=== PATIENT | male | born 1995 | race Caucasian/White ===

== ENCOUNTER → 2016-11-09 | Outpatient (CLI) | payer OTHER ==
[2016-11-09 11:55] VITALS: BP 137/85
--- NOTE | 2016-11-09 11:55 | Urgent Care T Sheet Gen (E) ---
Intake General Temperature (Fahrenheit): 97.7 Pulse: 78 Blood Pressure Systolic: 137 Blood Pressure Diastolic: 85 Respirations: 20 SPO2: 99 Description of Symptoms Patient presents with illness since yesterday. Started as a sore throat and now he has nasal congestion. No fever. No allergies this time of year. Patient was around a lot of people this past weekend and could have gotten sick from that. Is concerned with strep. Had his tonsils removed a long time ago. Used Chloraseptic spray without relief. Respiratory Constitutional Symptoms: No Fever, No Malaise EENTM: Nose Congestion Throat pain Respiratory: No symptoms reportedNo Cough Cardiovascular: No symptoms reported Gastrointestinal/Abdominal: No symptoms reported All Other Systems Reviewed Remaining Systems: All other systems reviewed with negative findings Past Alivsxa-Njgeuc-Nssbqy Hx Patient's Social History Alcohol Use: Denies Use Smoking Status: Never smoker Physical Exam Physical Exam General Appearance: WD/WN No apparent distress Eyes, Ears, Nose, Throat Ex: TMs normal Pharyngeal erythema Other (clear, thin nasal drainage. not much congestion) Neck Exam: SuppleNo Lymphadenopathy Respiratory Exam: Lungs clear Normal breath sounds Cardiovascular Exam: Regular rate, rhythm Progress/Orders Lab Results Labs Results: Rapid Strep (negative) Departure Urgent Care Impression Impression: Primary Impression: Viral pharyngitis Departure Disposition: HOME OR SELF-CARE Condition: Stable Additional Instructions: Rapid strep was negative. Will treat symptomatically Rest. Fluids. OTC cold meds as needed. Ibuprofen for pain Return as needed Patient understands DC instructions. All questions were answered. End of report . ABBE PEREIRA November 09, 2016 11:55
== END ==
LOC: MHUC 11:34
PROVIDERS: ATTEND Physician Assistant
DX: J02.8 Acute pharyngitis due to other specified organisms (principal)
CPT/HCPCS: 87880; 99213